=== PATIENT | male | born 2005 | race Caucasian/White ===

== ENCOUNTER 2024-08-14 11:01 | Emergency (ER) | payer OTHER ==
[~2024-08-14] VITALS: Ht 175.3 cm; Wt 83.9 kg
[2024-08-14] MEDS ORDERED: HUMALOG100 UNIT/2 SQ (11:54)
[2024-08-14] MEDS ORDERED: FAMOtidine 10 MG/ML (4ML VIAL) IV ONE (12:15)
[2024-08-14] MEDS ORDERED: 0.9 % SODIUM CHLORIDE 1,000 ML IV SCH (12:15)
[2024-08-14] MEDS ORDERED: ONDANSETRON HCL 2 MG/ML VIAL IV ONE (12:15)
[2024-08-14] MEDS ORDERED: 0.9 % SODIUM CHLORIDE 1,000 ML IV ONE (12:15)
[2024-08-14] MEDS ORDERED: ONDANSETRON HCL 2 MG/ML VIAL ONE (12:34)
[2024-08-14] MEDS ORDERED: FAMOTIDINE/PF 20 MG/2 ML VIAL ONE (12:34)
[2024-08-14 14:03] LABS: HEMATOCRIT 43.3 % (39.0-48.0); HEMOGLOBIN 14.9 g/dL (13-16.00); MEAN CELL VOLUME 88.8 fL (80.0-100.00); MEAN CORPUSCULAR HEMOGLOBIN 30.6 pg (27.00-32.0); MEAN CORPUSCULAR HGB CONC 34.5 g/dl (32.0-36.0); PLATELET COUNT 326 K/uL (150-450); RED BLOOD COUNT 4.87 M/uL (4.00-6.00); RED CELL DISTRIBUTION WIDTH 12.1 % (11.5-14.5)
[2024-08-14 14:07] LABS: PH,URINE 5.5 (5.0-8.0); URINE APPEARANCE Clear; URINE BILIRRUBIN Negative (NEGATIVE); URINE BLOOD Negative; URINE COLOR Yellow; URINE LEUKOCYTE Negative; URINE NITRATE Negative; URINE PROTEIN Negative (NEGATIVE); URINE UROBILINOGEN 0.2 E.U./dl
[2024-08-14 14:11] LABS: URINE WBC 2.9 uL (0.0-23.2)
[2024-08-14 14:16] LABS: URINE BACTERIA 1.2 uL (0.0-1933); URINE EPITHELIAL CELLS 0.3 uL (0.0-38.8); URINE GLUCOSE 250 MG/DL (NEGATIVE); URINE KETONE 40 (NEGATIVE)
[2024-08-14 14:37] LABS: ALBUMIN 4.5 gm/dL (3.4-5.0); BILIRUBIN TOTAL 0.73 mg/dL (0.3-1.2); CALCIUM 9.8 mg/dL (8.5-10.1); CREATININE SERUM 1.07 mg/dL (0.70-1.30); GFR 88.11; GLOBULINA 3.9 G/DL (2.4-3.5); POTASSIUM 4.34 mEq/L (3.5-5.1); TOTAL PROTEIN 8.4 gm/dL (6.4-8.2)
[2024-08-14 15:09] LABS: ABG PH 7.348 (7.35-7.45); ABG pCO2 49.3 mmHg (35-45)
[2024-08-14 15:10] LABS: ABG PO2 25.5 mmHg (80-100); BASE EXCESS 0.2 mmol/l; BICARBONATE 26.5 mmol/l (23-25); SaO2 42.1 %; o2 21 %
[2024-08-14 15:11] LABS: allen test SATISFACTORY; puncture site RADIAL LEFT
== END 2024-08-14 15:16 | disposition home or self-care (01) ==
LOC: EMR PED 11:04 → ER 11:04 → EMR PED 12:29
PROVIDERS: Emergency Medicine Pediatric Emergency Medicine
DX: K52.89 Other specified noninfective gastroenteritis and colitis (principal); E86.0 Dehydration; E11.9 Type 2 diabetes mellitus without complications; Z79.4 Long term (current) use of insulin; Z20.822 Contact with and (suspected) exposure to COVID-19
CPT/HCPCS: 36415; 82803; 96365; 99282; J2405; J3490; J7030